=== PATIENT | female | born 1970 | race Caucasian/White ===

== ENCOUNTER 2019-09-14 00:42 | Emergency (ER) | payer OTHER ==
[~2019-09-14] VITALS: Ht 162.6 cm; Wt 70.3 kg
[2019-09-14] MEDS ORDERED: LASIX20 MG (01:07)
[2019-09-14] MEDS ORDERED: ENALAPRIL MALEA10 MG (01:07)
== END 2019-09-14 06:28 | disposition home or self-care (01) ==
LOC: ER 00:42
DX: K52.9 Noninfective gastroenteritis and colitis, unspecified (principal)

== ENCOUNTER 2020-02-23 11:06 | Emergency (ER) | payer OTHER ==
[~2020-02-23] VITALS: Ht 157.5 cm; Wt 68.9 kg
[~2020-02-23 11:06] MED LIST: ENALAPRIL MALEA10 MG; LASIX20 MG
== END 2020-02-23 15:58 | disposition home or self-care (01) ==
LOC: ER 11:06
DX: K80.20 Calculus of gallbladder without cholecystitis without obstruction (principal); R10.11 Right upper quadrant pain

== ENCOUNTER 2020-06-11 23:03 | Emergency (ER) | payer OTHER ==
[~2020-06-11] VITALS: Ht 157.5 cm; Wt 71.7 kg
[2020-06-12] MEDS ORDERED: LEVSIN/SL0.125 MG SL (02:02)
[2020-06-12] MEDS ORDERED: ZOFRAN8 MG PO (02:02)
== END 2020-06-12 02:00 | disposition home or self-care (01) ==
LOC: ER 23:03
DX: K80.20 Calculus of gallbladder without cholecystitis without obstruction (principal)

== ENCOUNTER 2020-06-24 10:41 | Day surgery (SDC) | payer OTHER ==
[~2020-06-24 10:41] MED LIST changes: +LEVSIN/SL0.125 MG SL; +ZOFRAN8 MG PO
[2020-06-24] MEDS ORDERED: ULTRACET PO (16:32)
[2020-06-24] MEDS ORDERED: POLY119PG PO (16:32)
== END 2020-06-24 21:22 | disposition home or self-care (01) ==
LOC: CIR.AMB 10:41
PROVIDERS: ATTEND Surgery
DX: K80.10 Calculus of gallbladder with chronic cholecystitis without obstruction (principal); K42.9 Umbilical hernia without obstruction or gangrene; K43.9 Ventral hernia without obstruction or gangrene; Z20.828 Contact with and (suspected) exposure to other viral communicable diseases